=== PATIENT | female | born 1945 | race Caucasian/White ===

== ENCOUNTER 2019-02-14 12:06 | Day surgery (SDC) | payer MEDICARE, OTHER, SELFPAY ==
--- NOTE | 2019-02-14 | PATH_ITS ---
[facility] Accession Number: [id number] . 01 Material submitted: . colon - ASCENDING COLON POLYP . 02 Diagnosis: Ascending Colon, Polyp, Biopsy: Tubular adenoma. V/02/15/2019 . 02 Electronically signed: . Leona Whitehead MD, Pathologist NPI- [id number] . 01 Gross description: . ASCENDING COLON POLYP: Received in formalin is 1 fragment(s) of salazar, soft tissue measuring 0.5 x 0.2 x 0.2 cm which is entirely submitted and submitted entirely in 1 cassette(s) /DMC /DMC . 02 Pathologist provided ICD-10: D12.2 . 02 CPT . 091362 Performed at: 01 [facility] [address] [id number] MD Aidan Alexandra MD Phone: [phone] Performed at: 02 [facility] [address] [place], [place] [id number] MD Leona Whitehead MD Phone: [phone]
--- NOTE | 2019-02-14 09:19 | PM.HP.1 ---
History of Present Illness Date Patient Seen: 02/14/19 Chief complaint: [id number] Narrative: 73-year-old female here for colon cancer screening. She has had no prior colonoscopy done in the past. The patient currently has no active GI issues. She has a history of hypertension and hyperlipidemia Meds Home Medications Medication Instructions Recorded Confirmed Type aspirin [Aspir-81] 81 mg PO DAILY 02/14/19 02/14/19 History budesonide-formoterol [Symbicort] 2 puff INHALATION BID 02/14/19 02/14/19 History conjugated estrogens [Premarin] 1.25 mg PO DAILY 02/14/19 02/14/19 History furosemide [Lasix] 20 mg PO DAILY 02/14/19 02/14/19 History lisinopril 10 mg PO DAILY 02/14/19 02/14/19 History simvastatin 10 mg PO QPM 02/14/19 02/14/19 History Allergies Allergy/AdvReac Type Severity Reaction Status Date / Time Sulfa (Sulfonamide Allergy Mild Rash Verified 02/14/19 12:35 Antibiotics) Review of Systems Review of Systems All systems reviewed & are unremarkable except as noted in HPI and below Exam Narrative Exam Narrative: General: Patient is obese, not in apparent distress Cardiovascular: Regular rate and rhythm, no murmurs, rubs, or gallops; no evidence of edema; no palpable abdominal aortic aneurysm Gastrointestinal: Normoactive bowel sounds, soft, nontender, nondistended, no rebound tenderness, no hepatosplenomegaly, no evidence of hernia Assessment & Plan Assessment & Plan narrative: 73-year-old female here for colon cancer screening. She is at average risk for colon cancer. Regarding the procedure(s), the risks and potential complications, benefits, and alternatives (including not doing the procedure) were discussed with the patient. The risks include but are not limited to bleeding, splenic injury, infection, perforation which may require surgical intervention, missed lesions, and adverse reactions to sedative medicines. After a question and answer period, the patient agreed to proceed with the procedure(s) and gives informed consent.
[2019-02-14 12:40] VITALS: BP 141/63; PULSE 70; RESP 16; TEMP 37.1; O2SAT 99
[2019-02-14] MEDS: SODIUM CHLORIDE 0.9% 1,000 ML 70 ML IV (12:57)
[2019-02-14] MEDS: fentaNYL 250 MCG/5 ML INJ IV (13:29)
[2019-02-14] MEDS: MIDAZOLAM 5 MG/5 ML VIAL IV ×2 (13:30→13:36)
--- NOTE | 2019-02-14 13:47 | PM.OP.ENDO ---
Operative Date/Time/Diagnoses Date of procedure: 02/14/19 Procedure Notes Procedure in detail: Surgeon: Ricco Lowry MD Procedure: Colonoscopy with polypectomy Preoperative diagnosis: Colon cancer screening Postoperative diagnosis: Ascending colon polyp status post polypectomy; grade 1 internal hemorrhoids; hypertrophied anal papillae Medications: Conscious sedation using 6 mg IV of Midazolam and 100 mcg IV of Fentanyl Preanesthesia Assessment An H and P was performed/updated and the Px?s ASA class is 2. The procedure was discussed in detail with the patient. The potential risks and complications including infection, bleeding, missed lesions, perforation, need for surgery in case of perforation, prolonged hospital stay, and were explained. A brief question and answer period was allotted and once all questions were answered, informed consent was obtained. The patient was brought back to the procedure room and placed on standard monitoring. The patient?s vital signs were monitored continuously throughout the entire procedure. Prior to starting, a timeout was performed to confirm the patient?s identity, allergies, medications, and procedure. Procedure in detail The patient was placed in left lateral decubitus position and once adequate sedation was obtained a RUSTY was performed. The digital rectal examination did not reveal any palpable lesions. The tip of the colonoscope was placed in the anal canal and advanced without difficulty all the way to the cecum which was identified by the appendiceal orifice and the ileocecal valve. Careful examination of all hassan of the colon was performed with irrigation of any residual stool. In the ascending colon, a 3 mm sessile polyp was removed by means of cold Jumbo forceps. Resection and retrieval was complete. Retroflexion was performed in the rectum which revealed hypertrophied anal papillae and grade 1 internal hemorrhoids The patient tolerated the procedure well and will be brought back to the recovery area to be discharged once criteria are met. The prep was judged to be good and adequate to identify polyps less than 5 mm. The withdrawal time was 8 minutes. The total physician intraservice time was 18 minutes. Complications There were no complications and estimated blood loss was minimal. Recommendations: Resume previous diet Continue outPx medications Follow up pathology results Repeat colonoscopy in 5 years if the polyp is adenomatous, otherwise no further screening given patient's age An emergency contact number was given to the patient for any complications related to the procedure
[2019-02-14 13:51] VITALS: BP 136/61; PULSE 78; RESP 14; TEMP 36.3; O2SAT 94
[2019-02-14 13:55] VITALS: BP 127/63; PULSE 77; RESP 14; TEMP 36.8; O2SAT 98
[2019-02-14 13:56] VITALS: BP 126/61; PULSE 74; RESP 12; O2SAT 94
[2019-02-14 14:01] VITALS: BP 114/59; PULSE 76; RESP 15; O2SAT 93
[2019-02-14 14:27] VITALS: BP 121/64; PULSE 69; RESP 16; TEMP 36.8; O2SAT 98
--- NOTE | 2019-02-14 14:39 | SUR.PHASEII ---
Stable, oriented, states that she feels drowsy. All questions answered. Resp even and regular, skin warm and dry.
--- NOTE | 2019-02-14 14:40 | SUR.PHASEII ---
1403 late entry - received patient from Judah Shepard RN. Spouse brought to bedside. patient awake, drowsy, oriented.
== END 2019-02-14 14:39 | disposition home or self-care (01) ==
PROVIDERS: PCP Physician Assistant Medical; Visit Provider Internal Medicine Gastroenterology
PROC: 0DJD8ZZ Inspection of Lower Intestinal Tract, Via Natural or Artificial Opening Endoscopic (ICD-10-PCS; CPT 45378; principal; 2019-02-14 13:30)
DX: Z12.11 Encounter for screening for malignant neoplasm of colon (principal); D12.2 Benign neoplasm of ascending colon; K64.0 First degree hemorrhoids; I10 Essential (primary) hypertension; E78.5 Hyperlipidemia, unspecified
CPT/HCPCS: 45380; 88305; J2250; J3010

== ENCOUNTER 2024-10-16 08:05 | Day surgery (SDC) | payer MEDICARE, OTHER, SELFPAY ==
[2024-10-09 08:46] VITALS: BMI 31.3
[2024-10-16] VITALS (18 sets, daily range): BP systolic 85–162; BP diastolic 49–91; PULSE 62–88; RESP 13–20; TEMP 36.3–37.2; O2SAT 96–100; BMI 31.5
--- NOTE | 2024-10-16 06:36 | DI.RAD.S_ITS ---
PROCEDURE: XR KNEE RT 1TO2V INDICATIONS: TKA TECHNIQUE: 2 view(s) of the knee acquired. COMPARISON: None. FINDINGS: Bones: Patient is status post knee joint arthroplasty. Hardware components are in expected positions. Visualized bony structures are intact. Soft tissues: Overlying postoperative changes are noted. IMPRESSION: Expected post-operative appearance of a knee arthroplasty. Dictated by: Evan Aldrich M.D. on 10/16/2024 at 14:09 Approved by: Evan Aldrich M.D. on 10/16/2024 at 14:09
[2024-10-16] MEDS: ACETAMINOPHEN 325 MG TABLET 975 MG PO (09:20)
[2024-10-16] MEDS: LACTATED RINGERS 1,000 ML 42 ML IV ×2 (09:21→12:47)
[2024-10-16] MEDS: VANCOMYCIN 1,000 MG in SODIUM CHLORIDE 0.9% 250 ML IV (09:56)
--- NOTE | 2024-10-16 10:14 | P.OP_ITS ---
Operative Date/Time/Diagnoses Date of procedure: 10/16/24 Time of procedure: 11:20 Pre-op diagnosis: Severe right knee OA Post-op diagnosis: same Procedure & Clinicians Procedure: Right total knee arthroplasty Same procedure as scheduled: Yes Indications: The patient has had progressively worsening right knee pain with radiographic changes consistent with arthritis. Non-operative management has failed and the patient has requested total knee replacement. The risks, benefits and alternatives to surgery were discussed with the patient prior to proceeding. Risks discussed included, but were not limited to, failure to relieve pain, stiffness, infection, nerve damage, deep venous thrombosis, pulmonary embolism, stroke, coma, heart attack, permanent paralysis and , as well as the potential need for eventual revision of the prosthetic. Surgeon: Jennifer Barnes Chucking Lathe Operator: Rebecca Chow Anesthesia Type: Spinal and Peripheral nerve block Operative Notes Findings: Severe right knee OA, adequate bone, an adequate Closure Type: primary Specimen(s): none sent Prosthetic devices, grafts, tissues, transplants, or devices: Barnes and nephew redd BCS2 size 5 femur, size 4 tibia, +9 poly, 35 x 7-1/2 mm patella Estimated Blood Loss (mL): 250 Blood products transfused: none Tourniquet time (min): 74 Procedure in detail: The patient was seen in the pre-operative area, where the patient identified the right knee as the operative site and this was marked with my initials. The patient received pre-operative antibiotics, and was taken to the operating room and placed on the operative table in the supine position. After satisfactory anesthesia, a vehicle fuel systems converter out was performed. The right leg was encircled with a tourniquet about the proximal thigh, and the leg was prepared from the toes to the tourniquet with ChloroPrep in the usual fashion and draped through sterile drapes. The leg was elevated and exsanguinated with Eschmark bandage and the tourniquet inflated to [300] mmHg pressure. A PA was used during the procedure and was essential for intraoperative retraction and safe implantation of the components. The knee was approached through an approximately 18 cm incision centered over the patella and carried into the knee through a medial parapatellar arthrotomy. Portion of the medial and lateral meniscus was resected. Soft tissue was carefully mobilized around the patella the patella was measured with a caliper. Bone was resected from the patella and the patellar height was reconstituted with up an appropriate sized patellar component. A cover was then placed on the patella. A small amount of additional medial and lateral meniscus was resected. Pins were placed in the femur for navigation. The adjustable tibial guide was pinned to the tibia. The knee was meticulously mapped through a range of motion the plan was taken and developed. The Cori robotic bur was used for the distal femoral resection. It looked like an appropriate distal femoral cut and the cut was made without difficulty. The rotation was assessed and the appropriate size femoral guide was placed on the distal femur and finishing cuts were made. There was no evidence of notching. The anterior, posterior and chamfer cuts were then made. The posterior osteophytes and soft tissues were then removed. The posterior capsule was injected with part of a mixture of 60 ml 0.25% Mar anthony mixed with 266 mg Exparel for post operative pain control. The remainder of this mixture was injected into the capsule and subcutaneous tissues during cement curing. The tibial guide was carefully navigated. Proximal tibial cut was made without difficulty. He had reasonable quality bone. The rotation was assessed. The patient was placed in extension residual medial and lateral meniscus as well as any residual bone was carefully resected. [No] additional tibia was resected. Hemostasis was achieved especially posteriorly. Additional local was injected into the posterior capsule. The extension gap was assessed and it looked well balanced and aligned. The femoral component was trial was placed and the notch was finished. Trial tibial and femoral components were then placed and the knee placed through a range of motion. Range of motion was [0-130], with good stability throughout the range. The trials were then removed, and the tibia was finished. The bone was prepared with pulsatile lavage, and dried with a sponge. Cement was applied and the final prosthetics placed. Excess cement was removed during and after cement curing. A brief Betadine soak was performed. After confirming there was no extruded cement posteriorly, the final tibial insert was placed. The knee was copiously irrigated and the tourniquet deflated. Hemostasis was obtained with the Bovie cautery. The capsule was closed with interrupted # 1 Vicryl suture. The subcutaneous layer was closed with barbed sutures, and the skin with a running 3-0 V-Lock suture and Surgical glue. An Aquacel Ag dressing was applied and the patient was taken to recovery having tolerated the procedure well. Complications: none Post-operative Condition: stable Disposition: Acute Care Plan for aftercare: The patient will be maintained on a standard total knee replacement protocol with weight bearing as tolerated. The patient will receive aspirin and sequential compression devices for DVT prophylaxis. The patient will be discharged home when safe for the home environment.
--- NOTE | 2024-10-16 10:14 | PM.PREOP ---
Pre-operative Note Interval Note History & Physical reviewed/Exam performed by Physician: Yes Changes to H&P: No
[2024-10-16] MEDS: BUPIVACAINE 0.25% W/ EPI 30 ML VIAL INJ (11:47)
[2024-10-16] MEDS: BUPIVACAINE LIPOSOME 266 MG/20 ML VIAL INJ (11:50)
[2024-10-16] MEDS: CEFAZOLIN 2 GM/100 ML PREMIX 100 ML IV ×2 (11:51→20:15)
[2024-10-16] MEDS: TRANEXAMIC ACID 1,000 MG VIAL 1000 MG INJ ×2 (11:51→13:08)
--- NOTE | 2024-10-16 13:58 | SUR.PHASEI ---
Time out 1340 Block start time 1341 . Monitoring initiated and maintained throughout procedure. Patient remained stable throughout procedure, no adverse reactions noted. Block end time 1349
[2024-10-16] MEDS: OXYCODONE IR 5 MG TABLET PO (15:07)
--- NOTE | 2024-10-16 16:58 | PT.IIE ---
Current Diagnoses Unilateral primary osteoarthritis, left knee (10/16/24) Surgery Performed Operation Date: 10/16/24 10:45 Actual Procedures p Total Knee Arthroplasty - Robot(Right) - Jennifer Barnes MD Surgical History (Last Updated 10/09/24 @ 09:19 by Viv Brothers, RN) History of bladder surgery History of colonoscopy with polypectomy (02/14/19) History of hysterectomy (1996) Hx of bilateral cataract extraction (2022) Hx of cholecystectomy Medical History (Last Updated 10/09/24 @ 09:26 by Viv Brothers, RN) Asthma Easy bruisability Eczema History of COVID-19 HLD (hyperlipidemia) HTN (hypertension) Lymphedema (~2023) Osteoarthritis Physical Therapy Inpatient Evaluation/Re-Eval M1 PT/OT-IP Prior Functional Status Start: 10/16/24 16:45 Freq: NEEDED Status: Active Protocol: Document 10/16/24 16:46 KJ (Rec: 10/16/24 16:58 KJ [id number]) Medical Review Prior Functional Status Mobility and Gait Indep mobility but with difficulty, edison with stairs Social History Household Members spouse Living Arrangements House Number of Floors (Floors) Two Floors Number of Stairs To Enter/Railing? 1 step Home Environment Standard Height Toilet,Walk in Shower Home Equipment Front Wheel Walker,Straight Cane,Shower Seat without Backrest Additional Social History Comment Lives with who has some medical issues, has family living nearby M2 PT-IP Current Condition Start: 10/16/24 16:45 Freq: NEEDED Status: Active Protocol: Document 10/16/24 16:46 KJ (Rec: 10/16/24 16:58 KJ [id number]) Physical Therapy Current Condition Current Condition Evaluation Date 10/16/24 Treatment Diagnosis impaired mobility Onset Date 10/16/2024 M3 PT-IP Subjective Start: 10/16/24 16:45 Freq: NEEDED Status: Active Protocol: Document 10/16/24 16:46 KJ (Rec: 10/16/24 16:58 KJ [id number]) Subjective Physical Therapy Visit Type Type Initial Evaluation Visit Start Time 15:28 Visit Stop Time 16:27 Physical Therapy Visit Comments Patient Comments Pt wants to go home and plans to climb a full set of stairs to the second floor to sleep. Patient Goals to go home Therapy Pain Assessment Pain When Pain Assessed During Mobility Pain Present Pain Present Pain Reported Location right knee Description Aching,Dull,With Movement Pain Management Techniques Apply Cold,Re-positioning, Timing of Activity with Medications M4 PT-IP Mobility and Gait Start: 10/16/24 16:45 Freq: NEEDED Status: Active Protocol: Document 10/16/24 16:46 KJ (Rec: 10/16/24 16:58 KJ [id number]) PT-Bed Mobility Assessment Rolling Type of Rolling Roll to Right Level of Assist Minimal Assistance Supine to Sit Supine to Sit Minimal Assistance Sit to Supine Sit to Supine Moderate Assistance Scooting Scooting to Edge of Bed Contact Guard Assistance Scooting Up and Down in Bed Minimal Assistance PT-Transfer Assessment Sit to and From Stand Sit to and from Stand Contact Guard Assistance Equipment Transfer Assistive Device Gait Belt,Front Wheeled Walker Orthotic/Prosthetic Devices or Brace: No Transfers Transfer Destination Chair Transfer Technique Stand Step Pivot Transfer Ability Level of Assist Minimal Assistance Comments Mobility Comments moves quickly, requires verbal and tactile cuing for safety Gait Assessment Gait Gait Assistance Required: Minimum Assistance Distance (Feet) 12 Able to Maintain Weight Bearing Status Yes During Gait Assistive Devices Assistive Device Gait Belt,Front Wheeled Walker Orthotic/Prosthetic Devices or Brace: No Gait Deviations General Gait Pattern Decreased Stride Length,Narrow Based Gait,Step-to Gait Factors Limiting Gait Function Factors Limiting Gait Function Decreased Sensation,Pain Comments Gait Comments Some difficulty with gait pattern, moves quickly, requires cuing to slow down. Provided instruction on better gait pattern. PT-Balance Assessment Sitting Balance and Reactions Static Sitting Balance Ability Good Dynamic Sitting Balance Ability Good Standing Balance and Reactions Static Standing Balance Ability Fair Dynamic Standing Balance Ability Fair M5 PT-IP Objective Assessments Start: 10/16/24 16:45 Freq: NEEDED Status: Active Protocol: Document 10/16/24 16:46 KJ (Rec: 10/16/24 16:58 KJ [id number]) Orientation Orientation/Cognition Level of Alertness Alert Orientation Name,Age,Place,Situation Language Function Ability No Deficits Noted Safety Awareness Decreased Safety Awareness Gross Range of Motion Upper Extremity ROM Assessment Within Functional Limits Lower Extremity ROM Assessment Right Impaired Impairments knee Strength Upper Extremity Strength Assessment Within Functional Limits Lower Extremity Strength Assessment Right Impaired Knee 4/5 M6 PT-IP Treatment Start: 10/16/24 16:45 Freq: NEEDED Status: Active Protocol: Document 10/16/24 16:46 KJ (Rec: 10/16/24 16:58 KJ [id number]) Physical Therapy Treatment Exercises Exercises Ankle Pumps,Gluteal Sets,Quad Sets,Seated Knee Flexion/ Extension Education Education Provided Weight Bearing Status,Post-Op Packet,Safety Other Treatments Other Treatment Performed Instructed pt on importance of knee flex and ext. Instructed pt on techniques for pain control incl position and breathing. Verbally instructed pt and daught on safety during stair climbing. after ambulating 12 feet, pt became pale and felt hot. RN summoned and determined low BP . Pt returned to supine position. Second trial of ambulation 12' resulted in same. M7 PT-IP Assessment and Plan Start: 10/16/24 16:45 Freq: NEEDED Status: Active Protocol: Document 10/16/24 16:46 KJ (Rec: 10/16/24 16:58 KJ [id number]) PT Summary Assessment and Plan Potential Rehabilitation Potential Good Status of Condition at Evaluation Evolving Summary Impairments Pain,Activity Tolerance Progress Towards Goals Slow Progress due to Pain Assessment Summary due to quickness of movements producing a safety concern, as well as poor tolerance to activity, pt was moved into an acute care bed for further recovery Goals Bed Mobility Goal Standby Assistance Transfer Goal Standby Assistance Gait Goal Standby Assistance Gait Distance 50' Other Goals ascend/descend 4 steps w/rail and CGA Days to Meet Goals 2 Frequency of Treatment Frequency Of Treatment Twice a Day Treatment Plan Physical Therapy Treatment Plan Bed Mobility Training,Transfer Training,Gait Training, Therapeutic Exercise,Post Op Education Other Recommendations and Next Treatment step/stairs. Pt has one step Focus to enter house, and a full flight of stairs to get up to bedrooms Discharge Recommendations Transportation Needs at Discharge Private Vehicle
[2024-10-16] MEDS: IBUPROFEN 400 MG TABLET PO (17:54)
[2024-10-16] MEDS: LACTATED RINGERS 1,000 ML 100 ML IV (17:58)
[2024-10-16] MEDS: DOCUSATE 100 MG CAPSULE PO (20:15)
[2024-10-16] MEDS: ACETAMINOPHEN 325 MG TABLET 650 MG PO (20:15)
[2024-10-16] MEDS: ATORVASTATIN 20 MG TABLET 10 MG PO (20:15)
[2024-10-16] MEDS: ASPIRIN EC 81 MG TABLET PO (20:16)
[2024-10-17 00:11] VITALS: BP 167/59; PULSE 83; RESP 18; TEMP 36.3; O2SAT 99
[2024-10-17] MEDS: ACETAMINOPHEN 325 MG TABLET 650 MG PO ×2 (01:57→09:14)
[2024-10-17] MEDS: OXYCODONE IR 5 MG TABLET PO ×2 (01:57→09:20)
[2024-10-17] MEDS: ONDANSETRON 4 MG/2 ML INJ IV (01:57)
[2024-10-17] MEDS: IBUPROFEN 400 MG TABLET PO ×2 (01:57→10:48)
[2024-10-17] MEDS: CEFAZOLIN 2 GM/100 ML PREMIX 100 ML IV (04:14)
[2024-10-17 05:22] LABS: Hematocrit 33.3 % (36-46); Hemoglobin 11.1 g/dL (12.0-16.0)
[2024-10-17 08:10] VITALS: BP 147/51; PULSE 70; RESP 16; TEMP 36.9; O2SAT 99
--- NOTE | 2024-10-17 08:45 | PM.DS.1 ---
History of Present Illness History of Present Illness Chief complaint: Right Total Knee Arthroplasty - Robot Narrative: The patient has had progressively worsening right knee pain with radiographic changes consistent with arthritis. Non-operative management has failed and the patient has requested total knee replacement. The risks, benefits and alternatives to surgery were discussed with the patient prior to proceeding. Risks discussed included, but were not limited to, failure to relieve pain, stiffness, infection, nerve damage, deep venous thrombosis, pulmonary embolism, stroke, coma, heart attack, permanent paralysis and , as well as the potential need for eventual revision of the prosthetic. Discharge Providers Provider Discharge Date: 10/17/24 Primary care physician: Susan Ramirez PA-C Consults: 10/10/24 10:53 Consult to Anesthesiology Routine Comment: Consulting Provider: Anesthesiologist Reason for consultation: Surgeon requested re: Multiple Medical 10/16/24 06:36 Consult to Anesthesiology Routine Comment: Consulting Provider: Anesthesiologist Reason for consultation: Regional block for post operative pain control Has provider been notified: No 10/16/24 12:22 Consult to Physical Therapy Evaluate & Treat Comment: Begin therapy on first postop day as tolerated. Physician Instructions: Evaluate and Treat 10/16/24 17:22 Consult to Discharge Planning Routine Comment: Consult to Occupational Therapy Evaluate & Treat Comment: Physician Instructions: Evaluate and treat Consult to Physical Therapy Evaluate & Treat Comment: Physician Instructions: postop TKA protocol Discharge provider: Marcel Acosta PA-C Summary Hospital Course Discharge Diagnosis: Severe right knee OA Hospital Course: Procedure: Right total knee arthroplasty Same procedure as scheduled: Yes Surgeon: Jennifer Barnes Director Of Accreditation: Rebecca Chow Anesthesia Type: Spinal and Peripheral nerve block Operative Notes Findings: Severe right knee OA, adequate bone, an adequate Closure Type: primary Specimen(s): none sent Prosthetic devices, grafts, tissues, transplants, or devices: Barnes and nephew journey BCS2 size 5 femur, size 4 tibia, +9 poly, 35 x 7-1/2 mm patella Estimated Blood Loss (mL): 250 Blood products transfused: none Tourniquet time (min): 74 Status at Discharge Cognitive/behavioral status at discharge: oriented Functional status at discharge: uses cane/walker Overall status at discharge: patient is back to baseline Time Spent with Patient Time spent: Less than 30 minutes Exam Vital Signs (past 8 hours): - 10/17/24 08:10 Temperature 98.4 F Pulse Rate 70 Respiratory Rate 16 Blood Pressure 147/51 H Pulse Oximetry 99 Oxygen Flow Rate 0 Oxygen Delivery Method Room Air Oxygen Flow Rate 0 Narrative Exam Narrative: Patient found eating breakfast without any discomfort.Patient's pain is controlled with oral medication. ?Pain is localized to surgical site. ?Patient declines any new numbness or tingling at the surgical extremity. ?Patient denies any shortness of breath, dizziness, light-headedness, nausea, vomiting, fever or chills. 5/5 strength in hip flexors, quadriceps, hamstrings, DF, PF, EHL bilaterally. Sensation to light touch intact throughout BLE. Calves soft, compressible, nontender. Dressing placed intraoperatively CDI. Objective Labs 10/17/24 04:35 Labs: Laboratory Results - last 24 hr 10/17/24 04:35 Hgb 11.1 L Hct 33.3 L PFSH Medical History (Updated 10/09/24 @ 09:26 by Viv Brothers RN) History of COVID-19 Easy bruisability Eczema Lymphedema (~2023) Osteoarthritis HLD (hyperlipidemia) HTN (hypertension) Asthma Surgical History (Updated 10/09/24 @ 09:19 by iVv Brothers RN) History of hysterectomy (1996) History of bladder surgery Hx of cholecystectomy Hx of bilateral cataract extraction (2022) History of colonoscopy with polypectomy (02/14/19) Social History household members: spouse Smoking Status: Never smoker alcohol intake: current Discharge Assessment & Plan Assessment and Plan Assessment: Status post right knee total arthroplasty Plan of Treatment: Discharge to home. ? Ambulate and weight bear as tolerated with assistive devices. ? Aspirin 81 mg twice a day for 6 weeks for DVT prevention. ? Baseline pain relief with acetaminophen 500mg every 4 hours as needed and ibuprofen 400 mg every 4 hours as needed. ?Patient has been prescribed oxycodone 5 mg every 4 ?hours as needed for breakthrough pain. ? Initiate physical therapy in the next 5-10 days. ? Keep dressing clean and dry. Keep dressing on until first office visit. If dressing becomes dirty or disrupted, replace with appropriate sized dressing. Follow up in clinic in 2 weeks for wound check. Contact clinic if there are any questions or concerns. Discharge Plan Discharge Plan Patient Disposition: Home Nursing Discharge Comment: Do not exceed 3,000mg in 24 hours of tylenol (acetaminophen). Discharge orders & Medications Discharge Orders: Discharge (Order); Ordered 10/17/24 Ordered By: Marcel Acosta Prescriptions: New aspirin [Juan Chewable Aspirin] 81 mg tablet,chewable 81 mg PO BID Qty: 60 0RF oxycodone 5 mg tablet 5 mg PO Q6H PRN (Reason: pain) Qty: 30 0RF Continued lisinopril 10 mg Tablet 10 mg PO DAILY furosemide [Lasix] 20 mg Tablet 20 mg PO DAILY Premarin 1.25 mg Tablet 1.25 mg PO DAILY potassium chloride 10 mEq Capsule, Extended Release 10 meq PO DAILY albuterol sulfate 90 mcg/actuation Hfa Aerosol Inhaler 2 puff INHALATION Q4-6H PRN (Reason: Shortness of breath, cough) rosuvastatin 5 mg Tablet 5 mg PO BEDTIME fluticasone furoate-vilanterol [Breo Ellipta] 100-25 mcg/dose Blister With Device 1 inh INHALATION DAILY Follow up/Referrals: Jennifer Barnes MD [Physician] - 10/26/24 11:00 am (Appt:10/26 @ 11:00 with Clifford SWANSON @ [facility] [place] [employer]) Susan Ramirez PA-C [Primary Care Provider] - Diet/Activity/Treatments Diet: Diet as Tolerated Activity: Ambulate multiple times a day. Cold/Heat Therapy: Use ice multiple times a day. Okay to use 10 times a day. Skin/Wound/Dressing Care Skin care: Elevate foot if there is swelling, use light compressive stockings Report to your healthcare provider any signs of infection, such as:: chills, fever, night sweats, increased pain, unusual drainage and unusual redness Dressing: Leave dressing on. Okay to shower. Remove Rivera wrap in 48 hours. Visit Report/Discharge Packet Instructions: DI for Knee Replacement, DI for Prescription Opioid Use Stand Alone Forms: Patient Portal/API, Surgery Discharge Discharge Data Primary Care Provider: Susan Ramirez Attending Provider: Jennifer Barnes Quality VTE Deep Vein Thrombosis/Pulmonary Embolism Present on Admission: No
[2024-10-17] MEDS: ASPIRIN EC 81 MG TABLET PO (09:15)
[2024-10-17] MEDS: DOCUSATE 100 MG CAPSULE PO (09:21)
[2024-10-17] MEDS: lisinopriL 10 MG TABLET PO (09:22)
[2024-10-17] MEDS: ONDANSETRON 4 MG ODT PO (09:22)
--- NOTE | 2024-10-17 10:00 | PT.IPTN ---
Current Diagnoses Unilateral primary osteoarthritis, left knee (10/16/24) Surgery Performed Operation Date: 10/16/24 10:45 Actual Procedures p Total Knee Arthroplasty - Robot(Right) - Jennifer Barnes MD Physical Therapy Treatment Note M2 PT-IP Current Condition Start: 10/16/24 16:45 Freq: NEEDED Status: Active Protocol: Document 10/16/24 16:46 KJ (Rec: 10/16/24 16:58 KJ [id number]) Physical Therapy Current Condition Current Condition Evaluation Date 10/16/24 Treatment Diagnosis impaired mobility Onset Date 10/16/2024 M3 PT-IP Subjective Start: 10/16/24 16:45 Freq: NEEDED Status: Active Protocol: Document 10/17/24 10:00 AB (Rec: 10/17/24 12:33 AB [id number]) Subjective Physical Therapy Visit Type Type Treatment Note Visit Start Time 10:00 Visit Stop Time 10:40 Number of [employer] Visits 0 Physical Therapy Visit Comments Patient Comments agreeable to do PT Therapy Pain Assessment Pain When Pain Assessed At Rest Pain Present Pain Present Pain Reported Location right knee Intensity 5 Scale Used Numeric (0 - 10) Pain Management Techniques Modification of Treatment,Re- positioning,Timing of Activity with Medications M4 PT-IP Mobility and Gait Start: 10/16/24 16:45 Freq: NEEDED Status: Active Protocol: Document 10/17/24 10:00 AB (Rec: 10/17/24 12:33 AB [id number]) PT-Bed Mobility Assessment Supine to Sit Supine to Sit Standby Assistance PT-Transfer Assessment Sit to and From Stand Sit to and from Stand Minimal Assistance,1 Person Assistance,Use of Upper Extremities Equipment Transfer Assistive Device Gait Belt,Front Wheeled Walker Orthotic/Prosthetic Devices or Brace: No Comments Mobility Comments pt supine in bed and daughter in room. pt agreed to do PT. completed supine to sit SBA. completed sit to stand min A and ambulated in room ~ 30 ft using FWW min A and cues. (+) slight R knee buckling and cued for quads activation. pt can be impulsive. pt sat on EOB. caregiver training conducted. educated pt's daughter on how to use safety belt and how to assist pt. daughter was able to put safety belt on pt. daughter assisted pt with sit to stand min A and cues. and ambulation ~ 20 ft using FWW min A. pt sat on EOB and rested. stair climbing training. educated pt and daughter on how to do stairs using fWW. pt completed sit to stand from EOB min A and ambulated towards platform step using fWW min A. pt completed up/ down platform step using FWW max A and max cues. PT initially assisted pt. pt completed again with daughter assisting and completed. daughter stated that they have a family who is a PT who also will be present when pt d/c to assist with stairs. pt sat back on EOB. OT arrived. pt and daughter without further concerns. Left pt with OT. Gait Assessment Gait Gait Assistance Required: Minimum Assistance,1 Person Assist Distance (Feet) 30 Able to Maintain Weight Bearing Status Yes During Gait Assistive Devices Assistive Device Gait Belt,Front Wheeled Walker Orthotic/Prosthetic Devices or Brace: No Gait Deviations General Gait Pattern Antalgic,Decreased Stride Length,Decreased Feet Clearance Factors Limiting Gait Function Factors Limiting Gait Function Decreased Activity Tolerance, Decreased Strength,Limited Range of Motion,Pain,Poor Balance,Poor Safety Awareness Stair Climbing Assessment Evaluation Level of Assist On Stairs Maximal Assistance,1 Person Assistance Devices Stair Climbing Assistive Devices Front Wheel Walker Technique/Endurance Stair Climbing Direction Ascend and Descend Stair Climbing Technique Step to Step Number of Steps Climbed 1 Stair Climbing Set # Repetitions (reps) 2 M5 PT-IP Objective Assessments Start: 10/16/24 16:45 Freq: NEEDED Status: Active Protocol: Document 10/16/24 16:46 KJ (Rec: 10/16/24 16:58 KJ [id number]) Orientation Orientation/Cognition Level of Alertness Alert Orientation Name,Age,Place,Situation Language Function Ability No Deficits Noted Safety Awareness Decreased Safety Awareness Gross Range of Motion Upper Extremity ROM Assessment Within Functional Limits Lower Extremity ROM Assessment Right Impaired Impairments knee Strength Upper Extremity Strength Assessment Within Functional Limits Lower Extremity Strength Assessment Right Impaired Knee 4/5 M6 PT-IP Treatment Start: 10/16/24 16:45 Freq: NEEDED Status: Active Protocol: Document 10/17/24 10:00 AB (Rec: 10/17/24 12:33 AB [id number]) Physical Therapy Treatment Education Education Provided Safety M7 PT-IP Assessment and Plan Start: 10/16/24 16:45 Freq: NEEDED Status: Active Protocol: Document 10/17/24 10:00 AB (Rec: 10/17/24 12:33 AB [id number]) PT Summary Assessment and Plan Potential Rehabilitation Potential Fair Summary Impairments Pain,ROM,Strength,Balance, Coordination,Sensation,Tone, Cognition,Bed Mobility, Transfers,Gait,Activity Tolerance Progress Towards Goals Slow Progress due to Pain Assessment Summary pt requiring min A with transfers and ambulation using FWW and max A for stair climbing. caregiver training conducted and pt's daughter was able to assist pt safely. pt plans to go home later today. pt has outpt PT setup. Goals Bed Mobility Goal Standby Assistance Transfer Goal Standby Assistance,Front Wheeled Walker Gait Goal Standby Assistance,Front Wheel Walker Gait Distance 50' Other Goals up/down platform step using FWW SBA Days to Meet Goals 3 Frequency of Treatment Frequency Of Treatment Twice a Day Treatment Plan Physical Therapy Treatment Plan Bed Mobility Training,Transfer Training,Gait Training, Therapeutic Exercise,Post Op Education Discharge Recommendations Transportation Needs at Discharge Private Vehicle
--- NOTE | 2024-10-17 11:55 | PC.NURSE ---
Day shift: Left unit at approx 1145. Paperwork signed and all questions answered. Pt has all personal belongings. Daughter in room for d/c teachings. Taken to car via WC by PCT. Daughter is driving them home to [place]. Dressing remains CDI. PPP and CMS intact. Pt has MD scripts at home and they have been filled per Pt.
--- NOTE | 2024-10-17 12:34 | OT.IP.EVAL ---
Current Diagnoses Unilateral primary osteoarthritis, left knee (10/16/24) Surgery Performed Operation Date: 10/16/24 10:45 Actual Procedures p Total Knee Arthroplasty - Robot(Right) - Jennifer Barnes MD Past Medical History (Last Updated 10/09/24 @ 09:26 by Viv Brothers, RN) Asthma Easy bruisability Eczema History of COVID-19 HLD (hyperlipidemia) HTN (hypertension) Lymphedema (~2023) Osteoarthritis Surgical History (Last Updated 10/09/24 @ 09:19 by Viv Brothers RN) History of bladder surgery History of colonoscopy with polypectomy (02/14/19) History of hysterectomy (1996) Hx of bilateral cataract extraction (2022) Hx of cholecystectomy Occupational Therapy Inpatient Evaluation/Re-Eval M1 PT/OT-IP Prior Functional Status Start: 10/16/24 16:45 Freq: NEEDED Status: Active Protocol: Document 10/17/24 12:19 [facility] (Rec: 10/17/24 12:34 [facility] [id number]) Medical Review Prior Functional Status Mobility and Gait Indep mobility but with difficulty, edison with stairs Activities of Daily Living and IADL's ABle to do ADL and IADL needs with increased time. Social History Household Members spouse Living Arrangements House Number of Floors (Floors) Two Floors Number of Stairs To Enter/Railing? 1 step The shower is upstairs. Home Environment Standard Height Toilet,Walk in Shower Home Equipment Front Wheel Walker,Four Wheel Walker,Straight Cane,Bedside Commode,Shower Seat without Backrest,Sock Aid Additional Social History Comment Lives with who has some medical issues, has family living nearby M2 OT-IP Current Condition Start: 10/17/24 12:18 Freq: Status: Active Protocol: Document 10/17/24 12:19 [facility] (Rec: 10/17/24 12:34 [facility] [id number]) Occupational Therapy Current Condition Current Condition Evaluation Date 10/17/24 Treatment Diagnosis S/P R TKA Diagnosis Onset Date 10/16/24 M3 OT- IP Subjective and Pain Start: 10/17/24 12:18 Freq: Status: Active Protocol: Document 10/17/24 12:19 [facility] (Rec: 10/17/24 12:34 [facility] [id number]) OT- Subjective Occupational Therapy Visit Type Type Initial Evaluation Visit Start Time 09:13 Visit Stop Time 10:56 Notes Split treatment from [id number] and [id number] Occupational Therapy Visit Comments Patient Comments Pt agreed to use the toilet and get dressed, Pt's daughter present for second part of OT session of eval. Patient/Caregiver Goals To go home. OT Pain Assessment Pain When Pain Assessed At Rest Pain Present Pain Present Pain Reported Location right knee Intensity 5 M4 OT- IP ADL's Start: 10/17/24 12:18 Freq: Status: Active Protocol: Document 10/17/24 12:19 [facility] (Rec: 10/17/24 12:34 [facility] [id number]) OT [id number] General Evaluation Self-Feeding Ability Independent OT ADL-Grooming Comments OT Grooming Comments Not performed. OT ADL-Oral Care Comments Oral Care Comments NOt performed. OT ADL-Dressing General Eval Lower Body Dressing Ability Minimal Assistance Comments OT Dressing Comments Assist to get clothing over her feet. Educated to dress the RLE first and take out last. OT ADL-Toileting General Evaluation Toileting Ability Minimal Assistance Areas Needing Assistance Manage Clothing Comments OT Toileting Comments The bathroom on the main level in too small and best to have the BSC by the couch until able to to steps. OT ADL-Bathing Comments OT Bathing Comments Pt states to sponge off for now until able to do steps. M5 OT- IP IADL's Start: 10/17/24 12:18 Freq: Status: Active Protocol: Document 10/17/24 12:19 [facility] (Rec: 10/17/24 12:34 [facility] [id number]) OT-Instrumental Activities of Daily Living Home Safety Awareness Awareness of Need for Assistance at Home Good Awareness Ability to Problem Solve Emergency Able to Problem Solve Situations Medication Management Medication Management Comments Pt's daughter to assist her. Money Management Money Management Comments Pt's daugther to provide assist as needed. Meal Preparation Meal Preparation Caregiver Provides Assist Wirer Helper Wirer Helper Caregiver Provides Assist M6 OT- IP Functional Cognition Start: 10/17/24 12:18 Freq: Status: Active Protocol: Document 10/17/24 12:19 [facility] (Rec: 10/17/24 12:34 [facility] [id number]) Cognitive Factors Limiting Selfcare Function Cognitive Ability Level of Alertness Alert Patient Orientation Name,Age,Birthday,Month,Date, Year,Day of Week,Place, Situation Attention Span Ability Capable of Focused Attention, Capable of Sustained Attention Ability to Follow Commands Able to Follow One Step Commands Cognitive Comments Cognitive Assessment Comments Pt needing safety reminders for FWW use. OT- Vision and Hearing OT- Hearing Assessment OT- Hearing Assessment WFL OT- Vision Assessment Visual Acuity WFL Visual Attentiveness WFL Occular Pursuits WFL M7 OT- IP Mobility and Balance Start: 10/17/24 12:18 Freq: Status: Active Protocol: Document 10/17/24 12:19 [facility] (Rec: 10/17/24 12:34 [facility] [id number]) OT- Bed Mobility Assessment Supine to Sit Supine to Sit Assist Moderate Assistance Sit to Supine Sit to Supine Assist Moderate Assistance OT-Transfer Assessment Sit to and From Stand Sit to and from Stand Minimal Assistance Transfers Transfer Ability Minimal Assistance Technique Transfer Destination Bed,Bedside Commode Transfer Technique Stand Step Pivot Devices Transfer Assistive Devices Gait Belt,Front Wheeled Walker Comments Mobility Comments Pt's daughter educate and able to safely assist pt for ADL and mobility needs. Pt needing reminders to tighten her RLE to keep from buckling. OT- Balance Assessment Sitting Balance and Reactions Static Sitting Balance Ability Good Dynamic Sitting Balance Ability Good Standing Balance and Reactions Static Standing Balance Ability Fair Dynamic Standing Balance Ability Poor M8 OT- IP Objective Assessments Start: 10/17/24 12:18 Freq: Status: Active Protocol: Document 10/17/24 12:19 [facility] (Rec: 10/17/24 12:34 [facility] [id number]) OT Gross Range of Motion Upper Extremity Range of Motion ROM Impairments WFL for needs. OT Strength Comments Strength Comments WFL for needs. M9 OT- IP Assessment and Plan Start: 10/17/24 12:18 Freq: Status: Active Protocol: Document 10/17/24 12:19 [facility] (Rec: 10/17/24 12:34 [facility] [id number]) OT Summary Assessment and Plan Potential Rehabilitation Potential Good Analytic Complexity at Evaluation Low Summary OT Impairments Pain,Balance,Functional Mobility,Grooming,Dressing, Toileting,Bathing,Toilet Transfers,Shower Transfers, Activity Tolerance Progress Towards Goals Progressing Toward Goals Assessment Summary Pt low complexity and main barriers are steps, pain, and that her daughter to be home to assist her. Pt may benefit from home health initially until able to do steps verus outpt PT. Pt to have 24/7 assist. Goals Grooming Goal Independent Dressing Goal Independent Toileting Goal Independent Bathing Goal Standby Assistance Toilet Transfer Goal Independent Shower Transfer Goal Standby Assistance Days to Meet Goals 51 Frequency of Treatment Other frequency 5x/week Treatment Plan OT Treatment Plan ADL Training,Functional Mobility,Patient/Family Education,Discharge Planning Discharge Recommendations OT Discharge Recommendations Home with / Assist Available,Home Health, Outpatient PT Other Discharge Recommendations May benefit from home health intially to work on getting upstairs to her shower. Transportation Needs at Discharge Private Vehicle
--- NOTE | 2024-10-17 13:50 | CM.DANOTE ---
Initial DCP Assessment Visit Note Reviewed EMR and team rounds for status updates. Did not meet with pt f/f due to unit triage needs prior to her discharge. Pt lives independently at baseline with her spouse in their own home in [place], her spouse was at bedside and transported her home late this morning. She denied any CM d/c assistance needs at this time. Payor: Medicare Attending: Dr. Jennifer Barnes Pt is a 79 year-old F post-op dday 1 from a L-total knee arthroplasty surgery. Pt had some mod pain and orthostasis following surgery, did stay the night and was doing well this morning, was ready for home d/c. Pt has a hx of bilateral knee pain, the left being worse than the right. Has bilateral lower extremity swelling, significant pain that interfers. Has a good family/social support, and her home has already been modified for her activity needs/safe mobility. She does have a walker, cane, and shower chair. She has OP PT and f/u Ortho appts setup. No further needs indicated at this time. Discharge Planning/Care Management Advanced directive, confirm from FAMILY Start: 10/16/24 17:46 Freq: Q24H Status: Discharge Protocol: Document 10/16/24 17:46 EJ (Rec: 10/16/24 18:21 EJ [id number]) Advance Directive, confirm on record Time 18:00 Person contacted Zakiya (daughter Copy received No CM Discharge Assessment Start: 10/17/24 13:48 Freq: Status: Active Protocol: Document 10/17/24 13:48 DPL (Rec: 10/17/24 13:50 DPL [id number]) Discharge Planning Assessment Assigned Production Planner RAEGAN Mackay Advance Directives? Yes Advance Directives on File No History Provided By Patient,Medical Record Has Patient been admitted in last 30 No days? Prior Living Arrangements House Household Members spouse Type of transporation used prior to Drives own vehicle admit Independent with ADL's No: modified independent Is patient alert and oriented? Yes Comment N/A Caregiver for Another No Patient/Family Preference OP PT Therapy Barriers to Discharge No Discharge Plan Home Referrals Initiated None needed Review Status In Process Please Provide Date Initial DC 10/17/24 Assessment Was Performed Pre-Anesthesia Assessment Start: 10/09/24 08:46 Freq: Status: Discharge Protocol: Document 10/09/24 08:46 CAB (Rec: 10/09/24 09:42 [facility] [id number]) Pre-Anesthesia Assessment PAC Comment Phone assess 10/09/24 Patient Information Reviewed Via Phone Assessment Assessment Completed With Patient Comment Labs/EKG done per pt, not available at time of assess Primary Care Provider Susan Ramirez Seen Specialist in Last 12 Months Yes Specialist Seen Orthopedist Primary Language Citizen Of [place] Preferred Language Citizen Of [place] Technology Sales Consultant Required No Height 168.91 cm Weight 89.358 kg Body Mass Index (BMI) 31.3 Hearing Ability Normal Visual Impairment No Limitations Visual Assist None Dentition Type Teeth, Natural Present,Dental Implants Barriers to Learning None Hx Anesthesia Reactions No: Pt would like a spinal Hx Family Anesthesia Reaction Yes: Mom - severe PONV Hx Malignant Hyperthermia No Hx Blood Transfusions No Hx Blood Transfusion Reaction No Anesthesia Review Requested Yes: Surgeon requested re: Multiple Medical Patient Registration Rep No alcohol intake frequency holidays/special occasions only Smoking Status Never smoker Substance Use Type [#R] does not use Pain Present Pain Reported Musculoskeletal Symptoms Abnormal Gait,Difficulty Walking,Joint Pain History of Falling (Recent or History of No ) Patient is completely paralyzed or No completely immobile Mental Status Oriented to own ability Is patient on oxygen? No Does patient have PRINGLE/SOB Yes: Occasional r/t asthma Hx Sleep Apnea No CPAP/BIPAP use not prescribed Currently Taking a Beta Fanny No Can You Climb a Flight of Stairs Without Yes: Maybe a little SOB Hx Chest Pain No Hx SOB Yes: Occasional r/t asthma Hx Syncope or Dizziness No Anti-Coagulant Therapy No Has a Counseling Director No Cardiac Testing No: Echo @ [facility] 06/01/24 scanned and in folder Hx Pacemaker/ICD No Pacemaker Rep Required? No Cardiac Clearance Received No Diet Type At Home Regular Dysphagia No Gastrointestinal Symptoms Diarrhea Bladder Pattern Incontinent, Stress Urinary Catheter Present No Hx Urinary Self Catheterization No Diabetes No Patient No Lactating No Hx Drug Resistant Organism No Presence of External or Internal Medical No Devices Comment No covid symptoms last 8 weeks Marital Status Lives With spouse Current Living Arrangements House Number of Floors (Floors) Two Floors Number of Stairs To Enter/Railing? 1 step Support System Child/Children,Spouse Does the Patient Have Assistance After Yes Surgery Patient Discharge Plan Description Return Home Comment Pt advised same day surgery per surgeon Feels Safe in Current Environment Yes Been Physically Hurt or Threatened By a No Person in Current Environment Do you have thoughts of harming yourself None or others? Are you currently considering suicide? No Do you have a plan to hurt yourself or No Plan others? Do You Have Any Spiritual Beliefs That No May Affect Your HC Choices? Do You Have Any Cultural Practices That No May Affect Your HC Choices? Comment [employer] Who Can We Speak to About Patient's Care Family, friends Identifying Code for Release of Patient Declines to issue Information Health Care Proxy/Next of Kin Kiran () Health Care Proxy Emergency Contact Name Zakiya Carey (daughter) Emergency Contact Advance Directives? Yes Advance Directives on File No Requested Patient Bring Advanced Yes Directives DOS Power of Ordnance Technician Yes Power of Ordnance Technician Name Kiran () Power of Ordnance Technician PAC Instructions Assistance for 24 hours post- op,Do not shave/clip surgical site,Durable medical equipment ,Medications to take/avoid, Nasal antibiotic,No ETOH/ petroleum product on skin DOS, NPO,Post-op transportation,Pre -surgical wash,Sturdy shoes/ comfortable clothes,Do not bring valuables and remove jewelry
== END 2024-10-17 11:45 | disposition home or self-care (01) ==
LOC: OR 08:08 → AC 08:09
PROVIDERS: PCP Physician Assistant Medical; Referring Provider Orthopaedic Surgery; Visit Provider Orthopaedic Surgery
PROC: 0SRC0JZ Replacement of Right Knee Joint with Synthetic Substitute, Open Approach (ICD-10-PCS; CPT 27447; principal; 2024-10-16 10:45)
DX: M17.11 Unilateral primary osteoarthritis, right knee (principal); G89.18 Other acute postprocedural pain; I89.0 Lymphedema, not elsewhere classified; M25.761 Osteophyte, right knee
CPT/HCPCS: 27447; 20985; 36415; 64450; 73560; 85014; 85018; 97110; 97116; 97161; 97165; 97530; 97535; C1776; C1713; J0666; J0690; J2405; J2704; J3010; J7613